=== PATIENT | female | born 1960 | race Caucasian/White ===

== ENCOUNTER → 2016-10-29 | Outpatient (CLI) | payer BC | END | disposition home or self-care (01) | LOC: LABWHC1 13:02 | PROVIDERS: ATTEND Internal Medicine Clinical Cardiac Electrophysiology | DX: I48.0 Paroxysmal atrial fibrillation (principal) | CPT/HCPCS: 36415; 80061; 84443 ==

== ENCOUNTER → 2016-12-24 | Outpatient (CLI) | payer BC ==
--- NOTE | 2016-12-24 23:10 | MR ---
EXAMINATION TYPE: MR brain wo/w con DATE OF EXAM: 12/24/2016 9:58 PM COMPARISON: 01/03/2016 HISTORY: FOLLOW UP FROM PREVIOUS MRI CONTRAST: Standard multiplanar, multisequence MRI departmental protocol utilizing 15 mL intravenous MultiHance gadolinium contrast. FINDINGS: There is mild diffuse cerebral cortical atrophy. There is no mass effect nor midline shift. There is no sign of intracranial hemorrhage. There is no evidence of cerebral edema. Brainstem is in tact. Sella turcica appears normal. Corpus callosum is intact. On the FLAIR images there are a few sc attered foci of increased signal in the periventricular white matter that measure up to 5 mm. Total n umber is less than 5. There is a single larger focus that measures 10 x 6 mm adjacent to the frontal horn of the right lateral ventricle. Contrast images show no pathologic enhancement. IMPRESSION: There are a few scattered white matter high signal foci that are nonspecific and appear stable compar ed to 01/03/2016. This could relate to minimal demyelinating disease or small vessel ischemia.
--- NOTE | 2016-12-24 23:13 | MR ---
EXAMINATION TYPE: MR angio head wo con DATE OF EXAM: 12/24/2016 9:42 PM COMPARISON: NONE HISTORY: FOLLOW UP FROM PREVIOUS MRI TECHNIQUE: Time of flight images focusing on the [place] of [place] were performed without contrast. FINDINGS: There is arterial flow demonstrated in the anterior middle and posterior cerebral arteries. There is arterial flow in the vertebrobasilar artery system. Right vertebral artery is larger than t he left. Basilar artery fills mostly from the right side. There is patency of the left posterior comm unicating artery. Left posterior cerebral artery fills mostly from the posterior communicating artery . There is no evidence of aneurysm or neovascularity. There is no mass effect. There is no evidence o f stenosis. IMPRESSION: Negative MR angiogram of the brain.
== END | disposition home or self-care (01) ==
LOC: RADMRIMAIN 20:59
PROVIDERS: ATTEND Psychiatry & Neurology Neurology
DX: R93.0 Abnormal findings on diagnostic imaging of skull and head, not elsewhere classified (principal); D43.2 Neoplasm of uncertain behavior of brain, unspecified; R05 Cough; R13.10 Dysphagia, unspecified
CPT/HCPCS: 70544; 70553; A9577

== ENCOUNTER → 2017-05-12 | Outpatient (CLI) | payer BC ==
--- NOTE | 2017-05-13 11:34 | MM ---
Reason for exam: screening (asymptomatic). Last mammogram was performed 1 year and 5 months ago. History: Patient is postmenopausal. Benign MG stereo VAD BX RT of the right breast, July 12, 2014. Physical Findings: A clinical breast exam by your physician is recommended on an annual basis and results should be correlated with mammographic findings. MG Screening Mammo w CAD Bilateral CC and MLO view(s) were taken. Prior study comparison: November 28, 2015, bilateral MG screening mammo w CAD. July 03, 2014, right breast MG work up mamm w CAD RT. There are scattered fibroglandular densities. No significant changes when compared with prior studies. ASSESSMENT: Benign, BI-RAD 2 RECOMMENDATION: Routine screening mammogram of both breasts in 1 year.
== END | disposition home or self-care (01) ==
LOC: RADMAMWWP 16:14
PROVIDERS: ATTEND Obstetrics & Gynecology
DX: Z12.31 Encounter for screening mammogram for malignant neoplasm of breast (principal)

== ENCOUNTER → 2018-12-08 | Outpatient (CLI) | payer BC ==
--- NOTE | 2018-12-12 13:09 | MM ---
Reason for exam: screening (asymptomatic). Last mammogram was performed 1 year and 7 months ago. History: Patient is postmenopausal. Benign MG stereo VAD BX RT of the right breast, July 12, 2014. Physical Findings: A clinical breast exam by your physician is recommended on an annual basis and results should be correlated with mammographic findings. MG Screening Mammo w CAD Bilateral CC and MLO view(s) were taken. Prior study comparison: May 12, 2017, bilateral MG screening mammo w CAD. November 28, 2015, bilateral MG screening mammo w CAD. There are scattered fibroglandular densities. No significant changes when compared with prior studies. ASSESSMENT: Negative, BI-RAD 1 RECOMMENDATION: Routine screening mammogram of both breasts in 1 year.
== END | disposition home or self-care (01) ==
LOC: RADMAMWWP 11:55
PROVIDERS: ATTEND Obstetrics & Gynecology
DX: Z12.31 Encounter for screening mammogram for malignant neoplasm of breast (principal)
CPT/HCPCS: 77067

== ENCOUNTER → 2020-08-06 | Outpatient (CLI) | payer BC ==
--- NOTE | 2020-08-09 13:32 | US ---
EXAMINATION TYPE: US kidneys/renal and bladder DATE OF EXAM: 08/06/2020 COMPARISON: NONE CLINICAL HISTORY: R30.0 Dysuria, R39.11. difficulty urinating EXAM MEASUREMENTS: Right Kidney: 10.7 x 3.9 x 4.4 cm Left Kidney: 10.4 x 5.1 x 5.4 cm Post Void Residual Volume: 72.7 mL Right Kidney: no evidence of hydronephrosis Left Kidney: no evidence of hydronephrosis Bladder: appears wnl Bilateral Jets seen: yes Normal Post Void Residual: no There is no evidence for hydronephrosis at this point in time. No nephrolithiasis is seen. No kurt s are identified. Cortical medullary differentiation is maintained. The urinary bladder is anechoic. Bilateral ureteral jets are seen. IMPRESSION: No significant abnormality
== END | disposition home or self-care (01) ==
LOC: RADUSWWP 15:34
PROVIDERS: ATTEND Family Medicine
DX: R30.0 Dysuria (principal); R39.11 Hesitancy of micturition
CPT/HCPCS: 76770

== ENCOUNTER → 2021-07-28 | Outpatient (CLI) | payer BC ==
--- NOTE | 2021-07-29 14:17 | MM ---
Reason for exam: screening (asymptomatic). Last mammogram was performed 2 years and 8 months ago. History: Patient is postmenopausal. Benign MG stereo VAD BX RT of the right breast, July 12, 2014. Physical Findings: A clinical breast exam by your physician is recommended on an annual basis and results should be correlated with mammographic findings. MG Screening Mammo w CAD Bilateral CC and MLO view(s) were taken. Prior study comparison: December 08, 2018, bilateral MG screening mammo w CAD. May 12, 2017, bilateral MG screening mammo w CAD. There are scattered fibroglandular densities. Benign appearing calcifications in the left breast. There is chronic nodularity in the right breast. No significant changes when compared with prior studies. ASSESSMENT: Benign, BI-RAD 2 RECOMMENDATION: Routine screening mammogram of both breasts in 1 year.
== END | disposition home or self-care (01) ==
LOC: RADMAMWWP 11:11
PROVIDERS: ATTEND Family Medicine
DX: Z12.31 Encounter for screening mammogram for malignant neoplasm of breast (principal)
CPT/HCPCS: 77067

== ENCOUNTER → 2021-09-07 | Outpatient (CLI) | payer BC ==
[2021-09-07 19:48] LABS: HCT 41.9 % (37.2-46.3); HGB 13.3 g/dL (12.0-15.0); MCH 31.5 pg (27.0-32.0); MCHC 31.7 g/dL (32.0-37.0); MCV 99.3 fL (80.0-97.0); Mean Platelet Volume 10.9 fL (9.5-12.2); Platelet Count 315 X 10*3/uL (140-440); RBC 4.22 X 10*6/uL (4.10-5.20); RDW 13.1 % (11.5-14.5); WBC 5.78 X 10*3/uL (4.50-10.00)
[2021-09-07 20:04] LABS: African American GFR (CKD) 93.2 (60.0-200.0); Anion Gap 11.2 mmol/L (10.00-18.00); Blood Urea Nitrogen 10.9 mg/dL (9.0-27.0); Carbon Dioxide 24.5 mmol/L (20.0-27.5); Non-African American GFR(CKD) 80.4 (60.0-200.0); Potassium 4.1 mmol/L (3.5-5.5)
== END | disposition home or self-care (01) ==
LOC: LABPAT 14:12
PROVIDERS: ATTEND Internal Medicine
DX: Z01.812 Encounter for preprocedural laboratory examination (principal); U07.1 COVID-19; R07.9 Chest pain, unspecified
CPT/HCPCS: 80051; 82565; 84520; 85027; U0003

== ENCOUNTER 2021-09-10 10:47 | Day surgery (SDC) | payer BC ==
[2021-09-04 15:31] VITALS: BMI 25.0
[~2021-09-10 10:47] MED LIST: ALPRAZolam 0.25 MG TAB PO PRN; ALPRAZolam 0.5 MG TAB PO PRN; ASPIRIN 325 MG TAB PO STA; ATORVASTATIN 80 MG TAB PO STA; NITROGLYCERIN SL TABS 0.4 MG TAB SUBLINGUAL PRN; SODIUM CHLORIDE 0.9% 1,000 ML in EMPTY BAG 1 BAG IV SCH
[2021-09-10] MEDS ORDERED: SODIUM CHLORIDE 0.9% 1,000 ML IV ONE (10:59)
[2021-09-10 11:18] VITALS: RESP 16; TEMP 98.6
[2021-09-10] MEDS ORDERED: LIDOCAINE 1% INJ 10MG/ML (20 ML MDV) ONE (11:37)
[2021-09-10] MEDS ORDERED: fentaNYL (PF) 50 MCG/ML 2 ML AMP ONE (11:38)
[2021-09-10] MEDS ORDERED: VERAPAMIL 2.5 MG/ML 2 ML AMP ONE (11:38)
[2021-09-10] MEDS ORDERED: HEPARIN SODIUM 1,000 UN/ML (10ML VL) ONE (11:38)
[2021-09-10] MEDS ORDERED: fentaNYL (PF) 50 MCG/ML 2 ML AMP IV ONE (12:02)
[2021-09-10] MEDS ORDERED: MIDAZOLAM 2 MG/2 ML VIAL IV ONE (12:02)
[2021-09-10] MEDS ORDERED: LIDOCAINE 1% INJ 10MG/ML (20 ML MDV) SQ ONE (12:03)
[2021-09-10] MEDS ORDERED: VERAPAMIL SYRINGE (5 MG/10 ML) INTRAARTER ONE (12:04)
[2021-09-10] MEDS ORDERED: HEPARIN SODIUM 1,000 UN/ML (10ML VL) IV ONE (12:07)
[2021-09-10] MEDS ORDERED: IOPAMIDOL-370 125ML BTL INJ ONE (12:15)
[2021-09-10 16:37] VITALS: BP 110/69; PULSE 63
--- NOTE | 2021-09-11 15:09 | P.CARDCATH ---
Description of Procedure: PROCEDURES PERFORMED: Left heart catheterization, bilateral coronary angiography DATE OF PROCEDURE: 09/10/2021 INDICATION: Abnormal stress test CONSENT:I have discussed the risks, benefits and alternative therapies for the above-mentioned procedure and for both sedation/analgesia as well as necessary blood product administration, if indicated, as they pertain to this patient. The patient has indicated understanding and acceptance of the risks and procedures discussed. PROCEDURE: After the risks, benefits and alternatives of the above mentioned procedure explained in detail with the patient, informed consent was obtained. Patient was taken to the catheterization lab and prepped and draped in usual fashion. 1% lidocaine was used to anesthetize the right radial artery. A 6- Nepalese sheath was placed in the right radial artery using modified Seldinger technique. Left coronary angiography was performed with a 5-Nepalese JL 3.5 catheter and right coronary angiography was performed with a 5-Nepalese FR5 catheter in various views. A 5-Nepalese FR5 catheter was inserted into the left ventricle and pressure measurements were obtained. The right radial sheath was removed and a TR band was placed with hemostasis achieved. The patient tolerated the procedure well. Patient was transported back to the post catheterization holding area in stable condition. Conscious Sedation: Patient was monitored under the direct supervision of vision of myself for conscious sedation using Versed and fentanyl for a total duration of 13 minutes HEMODYNAMICS: AO: 104/62 LV: 112/1, LVEDP 10mmHg SELECTIVE CORONARY ARTERIOGRAPHY: LEFT MAIN: The left main is a large caliber vessel which bifurcates into the LAD and circumflex. There is no stenosis. LEFT ANTERIOR DESCENDING CORONARY ARTERY: LAD is a large caliber vessel which wraps around to the apex. There is diffuse 30-40% proximal to mid LAD stenosis and otherwise mild luminal irregularities. LEFT CIRCUMFLEX CORONARY ARTERY: Left circumflex is a moderate caliber vessel and has no significant stenosis. RIGHT CORONARY ARTERY: The right coronary artery is a large caliber vessel which gives off the PDA and PLV and is the dominant vessel. There is a mid RCA 30-40% stenosis. FINAL IMPRESSION: 1. CAD as described above including 30-40% LAD and 30-40% RCA stenosis 2. Normal left sided filling pressures. PLAN: 1. Aggressive risk factor modification per most recent ACC/AHA guidelines. 2. Followup in office.
== END 2021-09-10 16:34 | disposition home or self-care (01) ==
LOC: CATHCVL 10:47
PROVIDERS: ATTEND Internal Medicine
DX: I25.10 Atherosclerotic heart disease of native coronary artery without angina pectoris (principal)
CPT/HCPCS: 93458; C1894; J2250; J2001; J3010; J1644; Q9967

== ENCOUNTER → 2022-05-11 | Outpatient (CLI) | payer BC ==
[2022-05-11 22:37] LABS: Alternaria alternata IgE <0.10 kU/L; Aspergillus fumagatus IgE <0.10 kU/L; Birch IgE <0.10 kU/L; Cat Epith & Dander IgE <0.10 kU/L; Cladosporian herbarum IgE <0.10 kU/L; Cockroach IgE <0.10 kU/L; Dermato. farinae IgE <0.10 kU/L; Dog Dander IgE <0.10 kU/L; Maple (Box Elder) IgE <0.10 kU/L; Oak IgE <0.10 kU/L; Ragweed,Common IgE <0.10 kU/L
[2022-05-12 10:07] LABS: Immunoglobulin E 1.49 IU/mL (0.00-114.00)
[2022-05-12 11:50] LABS: Timothy Grass IgE <0.10 kU/L (<0.10); Timothy Grass IgE Class CLASS 0
[2022-05-12 11:51] LABS: Aureo. pullulans IgE <0.10 kU/L (<0.10); Aureo. pullulans IgE Class CLASS 0; Epicoccum purpurascens Class CLASS 0; Epicoccum purpurascens IgE <0.10 kU/L (<0.10); Johnson Grass IgE Class CLASS 0
[2022-05-12 11:52] LABS: Candida albicans IgE Class CLASS 0; Cottonwood IgE <0.10 kU/L (<0.10); Mucor racemosus IgE <0.10 kU/L (<0.10); Mucor racemosus IgE Class CLASS 0; Rhizopus nigricans IgE <0.10 kU/L (<0.10); Rhizopus nigricans IgE Class CLASS 0; S.rostrata/Helminth Class CLASS 0; S.rostrata/Helminth IgE <0.10 kU/L (<0.10); Walnut Tree IgE <0.10 kU/L (<0.10); Walnut Tree IgE Class CLASS 0
[2022-05-12 11:53] LABS: Com. Pigweed IgE <0.10 kU/L (<0.10); Com. Pigweed IgE Class CLASS 0; English Plantain IgE Class CLASS 0; Lamb's Quarter IgE <0.10 kU/L (<0.10); Lamb's Quarter IgE Class CLASS 0; Sycamore(Mpl.Lf) IgE <0.10 kU/L (<0.10); Sycamore(Mpl.Lf) IgE Class CLASS 0; White Ash IgE Class CLASS 0
== END | disposition home or self-care (01) ==
LOC: LABWHC1 14:03
PROVIDERS: ATTEND Otolaryngology
DX: J30.89 Other allergic rhinitis (principal)
CPT/HCPCS: 36415; 82785; 86001; 86003

== ENCOUNTER → 2022-07-14 | Outpatient (CLI) | payer BC ==
--- NOTE | 2022-07-14 07:15 | MR ---
EXAMINATION TYPE: MR lumbar spine wo con DATE OF EXAM: 07/14/2022 COMPARISON: Calcified lumbar spine x-ray February 25, 2022 HISTORY: Low back pain TECHNIQUE: Multiplanar, multisequence imaging of the lumbar spine is performed without IV contrast. FINDINGS: Persistent dextroconvex scoliosis centered midlumbar spine. Persistent severe grade 1 anter olisthesis L5 on S1 measured 9 mm along the posterior vertebral body margin. Multilevel disc desiccat ion is present. Multilevel [id number] disc space narrowing redemonstrated with mild to moderate anterior spurring and heterogeneous Modic type II endplate changes anterior T12-L1 level. The conus medullaris is normal in position and signal ending superior L1 level. A few tiny Tarlov cysts noted i n the upper sacrum sagittal image 7. The bone marrow signal intensity is within normal limits. Axial images at T12-L1 levels show mild broad disc bulge with right paracentral disc protrusion compo nent mildly effacing the anterior thecal sac. Axial images at L1-L2 level show mild broad disc bulge mildly effacing anterior thecal sac and mild f acet arthropathy bilaterally. Axial images at L2-L3 level appear within normal limits. Axial images at L3-L4 level show mild broad disc bulge mildly effacing the anterior thecal sac. There is mild/moderate facet arthropathy and ligamentum flavum hypertrophy effacing the posterolateral the josephine sac. Patent bilateral neural foramina. Axial images at L4-L5 show mild broad disc bulge with left foraminal disc protrusion component causin g asymmetric mild left-sided inferior neural foraminal narrowing. There is mild facet arthropathy ty aterally. Right-sided neural foramen is patent. Axial images at L5-S1 level shows spondylolisthesis and mild to moderate facet arthropathy. Spinal ca nal is preserved. There is moderate severe bilateral inferior neural foraminal narrowing with encroac hment on the right L5 nerve seen sagittal image 13 and axial image 5. Encroachment along inferior mar gin left L5 nerve seen sagittal image 4. Paraspinal muscle bulk is preserved. IMPRESSION: Multilevel degenerative change in lumbar spine as detailed above. Most prominent findings related to spondylolisthesis noted L5-S1 level.
== END | disposition home or self-care (01) ==
LOC: RADMRIMAIN 05:58
PROVIDERS: ATTEND Family Medicine
DX: M47.817 Spondylosis without myelopathy or radiculopathy, lumbosacral region (principal); M43.17 Spondylolisthesis, lumbosacral region; M99.74 Connective tissue and disc stenosis of intervertebral foramina of sacral region; M51.26 Other intervertebral disc displacement, lumbar region
CPT/HCPCS: 72148

== ENCOUNTER → 2022-07-30 | Outpatient (CLI) | payer BC ==
[2022-07-30 19:07] LABS: ALT 23 U/L (8-44); AST 22 U/L (13-35); African American GFR (CKD) 107.6 (60.0-200.0); Albumin 4.7 g/dL (3.8-4.9); Albumin/Globulin Ratio 2.14 (1.60-3.17); Alkaline Phosphatase 50 U/L (41-126); BUN/Creat Ratio 15.43 Ratio (12.00-20.00); Blood Urea Nitrogen 10.8 mg/dL (9.0-27.0); Carbon Dioxide 24.8 mmol/L (20.0-27.5); Chloride 102 mmol/L (96-109); Chol/HDL Ratio 2.46 Ratio; Globulin 2.2 g/dL (1.6-3.3); Glucose 98 mg/dL (70-110); LDL Cholesterol,Calculated 60.6 mg/dL (0.0-131.0); Non-African American GFR(CKD) 92.9 (60.0-200.0); Potassium 4.5 mmol/L (3.5-5.5); Sodium 138 mmol/L (135-145); Total Protein 6.9 g/dL (6.2-8.2)
== END | disposition home or self-care (01) ==
LOC: LABWHC1 12:23
PROVIDERS: ATTEND Internal Medicine Clinical Cardiac Electrophysiology
DX: I25.10 Atherosclerotic heart disease of native coronary artery without angina pectoris (principal); E78.5 Hyperlipidemia, unspecified
CPT/HCPCS: 36415; 80053; 80061; 83721

== ENCOUNTER → 2022-08-04 | Outpatient (CLI) | payer BC ==
--- NOTE | 2022-08-05 19:18 | MM ---
Reason for Exam: Screening (asymptomatic). Last screening mammogram was performed 12 month(s) ago. Patient History: Menarche at age 11. First Full-Term at age 18. Postmenopausal. 07/12/2014, Benign Core Biopsy on the right side. Risk Values: Tiffany 5 year model risk: 1.4%. NCI Lifetime model risk: 6.5%. Prior Study Comparison: 05/12/2017 Bilateral Screening Mammogram, [facility]. 12/08/2018 Bilateral Screening Mammogram, [facility]. 07/28/2021 Bilateral Screening Mammogram, [facility]. Tissue Density: There are scattered fibroglandular densities. Findings: Analyzed By CAD. There is no suspicious group of microcalcifications or new suspicious mass in either breast. Overall Assessment: Negative, BI-RAD 1 Management: Screening Mammogram of both breasts in 1 year. 1. Patient should continue monthly self breast exams. 2. A clinical breast exam by your physician is recommended on an annual basis. 3. This exam should not preclude additional follow-up of suspicious palpable abnormalities. Electronically signed and approved by: Ana Cherry M.D. Radiologist
== END | disposition home or self-care (01) ==
LOC: RADMAMWWP 14:05
PROVIDERS: ATTEND Family Medicine
DX: Z12.31 Encounter for screening mammogram for malignant neoplasm of breast (principal); Z78.0 Asymptomatic menopausal state
CPT/HCPCS: 77067

== ENCOUNTER → 2023-08-18 | Outpatient (CLI) | payer BC ==
[2023-08-18 15:44] LABS: HCT 43.3 % (37.2-46.3); HGB 13.7 g/dL (12.0-15.0); MCH 31.1 pg (27.0-32.0); MCHC 31.6 g/dL (32.0-37.0); MCV 98.2 FL (80.0-97.0); Mean Platelet Volume 10.8 FL (9.5-12.2); NRBC Per 100 WBC 0 X 10*3/uL (0.00-0.01); Platelet Count 291 X 10*3/uL (140-440); RBC 4.41 X 10*6/uL (4.10-5.20); RDW 12.7 % (11.5-14.5); WBC 5.88 X 10*3/uL (4.50-10.00)
[2023-08-18 16:12] LABS: Blood Urea Nitrogen 9.5 mg/dL (9.0-27.0); Carbon Dioxide 26.9 mmol/L (21.6-31.8); Chloride 101 mmol/L (96-109); Potassium 4.6 mmol/L (3.5-5.5); Sodium 140 mmol/L (135-145)
== END | disposition home or self-care (01) ==
LOC: LABPAT 10:53
PROVIDERS: ATTEND Internal Medicine Clinical Cardiac Electrophysiology
DX: Z01.812 Encounter for preprocedural laboratory examination (principal); I48.0 Paroxysmal atrial fibrillation
CPT/HCPCS: 36415; 80051; 82565; 84520; 85027

== ENCOUNTER 2023-09-01 07:49 | Day surgery (SDC) | payer BC ==
[~2023-09-01 07:49] MED LIST changes: -ALPRAZolam 0.25 MG TAB PO PRN; -ALPRAZolam 0.5 MG TAB PO PRN; -ASPIRIN 325 MG TAB PO STA; -ATORVASTATIN 80 MG TAB PO STA; +LIDOCAINE 1% (10MG/ML) FOR IV START INTRADERMA PRN; -NITROGLYCERIN SL TABS 0.4 MG TAB SUBLINGUAL PRN; -SODIUM CHLORIDE 0.9% 1,000 ML in EMPTY BAG 1 BAG IV SCH
[2023-09-01] MEDS: SODIUM CHLORIDE 0.9% 1,000 ML IV SCH ×2 (08:22→21:44)
[2023-09-01] MEDS ORDERED: fentaNYL (PF) 50 MCG/ML 2 ML AMP ONE (09:35)
[2023-09-01] MEDS ORDERED: ePHEDrine 50 MG/ML 1 ML VIAL ONE (09:35)
[2023-09-01] MEDS ORDERED: MIDAZOLAM 2 MG/2 ML VIAL ONE (09:35)
[2023-09-01] MEDS ORDERED: PHENYLEPHRINE-0.9% NACL SYG 1,000 MCG/10 ML SYRINGE ONE (09:35)
[2023-09-01] MEDS ORDERED: PROPOFOL 10 MG/ML 20 ML VIAL IV ONE (09:35)
[2023-09-01] MEDS ORDERED: LIDOCAINE 1% INJ 10MG/ML (20 ML MDV) ONE ×2 (09:35→10:11)
[2023-09-01] MEDS ORDERED: SUCCINYLCHOLINE CHLORIDE 200 MG/10 ML VIAL IV ONE (09:35)
[2023-09-01] MEDS ORDERED: WATER FOR INJECTION, STERILE 10 ML VIAL IV ONE (09:35)
[2023-09-01] MEDS ORDERED: HEPARIN SODIUM,PORCINE 10,000 UNIT/ML 1 ML VIAL ONE (09:35)
[2023-09-01] MEDS ORDERED: HEPARIN SOD,PORK IN 0.45% NACL 25,000 UNIT in 0.45% NACL 1 250ML.BAG IV ONE ×2 (10:05)
[2023-09-01] MEDS ORDERED: LIDOCAINE 1% INJ 10MG/ML (20 ML MDV) SQ ONE (10:36)
[2023-09-01] MEDS ORDERED: IOPAMIDOL-370 100ML BTL INJ ONE (12:25)
[2023-09-01] MEDS ORDERED: ACETAMINOPHEN TAB 325 MG TAB PO PRN (13:51)
[2023-09-01] MEDS ORDERED: ACETAMINOPHEN IV (For NPO) 1,000 MG in EMPTY BAG 1 BAG IVPB ONE (16:00)
[2023-09-01] MEDS: LACTATED RINGERS 1,000 ML IV SCH ×2 (17:04→21:43)
--- NOTE | 2023-09-01 18:32 | P.EPPROC ---
- EP Procedure Note Electrophysiology Procedure Note: PROCEDURE A. 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 fib ablation/pulmonary vein isolation of all veins using cryo- ablation Complete entrance block in all 4 veins confirmed No evidence for phrenic nerve injury Esophageal deflection YES PROCEDURE DETAILS Written informed consent prior to procedure. Patient brought to the EP lab. General anesthesia given. Heparin administered. A city maintained above 300 seconds Both groins prepped and draped per protocol and venous sheaths placed. Esophagus intubated, circa catheter for temperature monitoring an endoscope for possible esophageal deflection. Phrenic nerve monitoring performed. Esophageal temperature monitoring performed. Esophageal deflection performed if circa catheter overlapping with the balloon or circa temperature less than 27.5C Intracardiac echocardiography performed. Pericardium evaluated. Left atrial appendage evaluated. Left atrium evaluated along with pulmonary veins Transseptal catheterization performed under fluoroscopic guidance and intracardiac echo guidance Cryoablation sheath exchanged, balloon catheter along with achieve catheter placed in the left atrium. Pulmonary veins isolated in the following sequence: Left superior pulmonary vein followed by left inferior pulmonary vein, followed by right inferior pulmonary vein and lastly right superior pulmonary vein. Phrenic nerve stimulation along with capture thresholds within the SVC and right superior pulmonary vein to identify the phrenic nerve proximity to the cryo- balloon. Pulmonary veins isolated and confirmed with entrance and exit block. Phrenic nerve integrity confirmed at the end of the procedure Diagnostic catheters for the high right atrium, His bundle, coronary sinus placed. LA and RA pressures recorded RA pressure: 13/9 LA pressure: 08/21/10 Diagnostic EP study with coronary sinus pacing and recording Baseline measurements: Sinus cycle length 626 ms, AK interval 130 ms, QRS 97 ms and QT 346 ms AH interval 54 and HV interval 37 ms Parahisian pacing revealed zarina response VA Wenckebach block 300 ms Atrial pacing performed from the high right atrium and coronary sinus to assess Venous sheaths were removed and hemostasis assured with a closure device. Patie nt extubated and transferred to recovery Increase procedural time Complex right superior pulmonary vein anatomy. Despite adequate occlusion isolated potentials persisted Extra effort to occlude a different tributaries are of the right superior vein to achieve complete isolation and elimination of all PCPs The left-sided veins had a common os with immediate branching. The also had a anteroposterior orientation relative to 1 other It took extra effort to find the left superior and left inferior pulmonary veins individually isolated them at an anterolateral level Multiple shorter ablations were delivered to achieve complete antral level isolation PROCEDURES PERFORMED Diagnostic EP study CS pacing and recording Left and right transseptal catheterization Catheter the mapping of the tachycardia Intracardiac echocardiography Pulmonary vein isolation with transseptal and comprehensive EPS, [id number] Extended procedure duration
[2023-09-01 19:49] VITALS: RESP 16
[2023-09-01] MEDS: APIXABAN 5 MG TAB PO SCH (20:13)
[2023-09-01] MEDS ORDERED: ATORVASTATIN 40 MG TAB PO SCH (21:00)
[2023-09-02 04:51] VITALS: TEMP 98.1
[2023-09-02] MEDS ORDERED: PANTOPRAZOLE 40 MG TABLET PO SCH (07:30)
[2023-09-02] MEDS: APIXABAN 5 MG TAB PO SCH (08:39)
[2023-09-02] MEDS ORDERED: COLCHICINE 0.6 MG EACH PO SCH (09:00)
[2023-09-02] MEDS ORDERED: atenoloL 25 MG TAB PO SCH (09:00)
[2023-09-02 09:18] VITALS: BP 131/78; PULSE 98
== END 2023-09-02 10:26 | disposition home or self-care (01) ==
LOC: CATHEP 07:49 → 6NMEDSUR 12:25 → CATHEP 09-02 10:26
PROVIDERS: ATTEND Internal Medicine Clinical Cardiac Electrophysiology
DX: I48.0 Paroxysmal atrial fibrillation (principal); Z82.49 Family history of ischemic heart disease and other diseases of the circulatory system; Z79.01 Long term (current) use of anticoagulants; Z79.899 Other long term (current) drug therapy
CPT/HCPCS: 93656; 86900; 86901; 86850; C1894 ×2; C1769 ×3; C1760; C1730 ×2; C1759; C1893; C1733; C1766; J2001; J0131; Q9967; J1644

== ENCOUNTER → 2024-04-18 | Outpatient (CLI) | payer BC ==
--- NOTE | 2024-04-19 10:35 | MM ---
Reason for Exam: Screening (asymptomatic). Last mammogram was performed 1 year(s) and 9 month(s) ago. Patient History: Menarche at age 11. First Full-Term at age 18. Postmenopausal. 07/12/2014, Benign Core Biopsy on the right side. Risk Values: Tiffany 5 year model risk: 1.5%. NCI Lifetime model risk: 6.1%. Prior Study Comparison: 12/08/2018 Bilateral Screening Mammogram, [facility]. 07/28/2021 Bilateral Screening Mammogram, [facility]. 08/04/2022 Bilateral MG screening mammo w CAD, [facility]. Tissue Density: The breasts are heterogeneously dense, which may obscure small masses. Findings: Analyzed By CAD. There is no suspicious group of microcalcifications or new suspicious mass in either breast. Overall Assessment: Benign, BI-RAD 2 Management: Screening Mammogram of both breasts in 1 year. . Patient should continue monthly self-breast exams. A clinical breast exam by your physician is recommended on an annual basis. This exam should not preclude additional follow-up of suspicious palpable abnormalities. Note on Tiffany scores and lifetime risk: 1. A Tiffany score greater than 3% is considered moderate risk. If this is the case, consider specialist referral to assess eligibility for a risk reducing agent. 2. If overall lifetime risk for the development of breast cancer is 20% or higher, the patient may qualify for future screening with alternating mammogram and breast MRI. Electronically signed and approved by: Bernabe Rudolph M.D. Radiologis
== END | disposition home or self-care (01) ==
LOC: RADMAMWWP 11:11
PROVIDERS: ATTEND Obstetrics & Gynecology
DX: Z12.31 Encounter for screening mammogram for malignant neoplasm of breast
CPT/HCPCS: 77063; 77067

== ENCOUNTER 2024-10-03 19:26 | Observation (INO) | payer BC ==
[2024-10-03 21:26] LABS: Basophils % (A) 0 %; Eosinophils # (A) 0.3 k/uL (0-0.7); Eosinophils % (A) 5 %; HCT 42.7 % (34.0-46.0); HGB 13.9 gm/dL (11.4-16.0); Lymphocytes # (A) 2.2 k/uL (1.0-4.8); Lymphocytes % (A) 38 %; MCH 31.1 pg (25.0-35.0); MCHC 32.5 g/dL (31.0-37.0); MCV 95.5 fL (80.0-100.0); Mean Platelet Volume 8.2; Monocytes # (A) 0.4 k/uL (0-1.0); Monocytes % (A) 7 %; Neutrophils # (A) 2.7 k/uL (1.3-7.7); Neutrophils % (A) 48 %; Platelet Count 269 k/uL (150-450); RBC 4.48 m/uL (3.80-5.40); RDW 12.9 % (11.5-15.5); WBC 5.7 k/uL (3.8-10.6)
[2024-10-03 21:33] LABS: ALT 26 U/L (4-34); AST 27 U/L (14-36); African American GFR (CKD) 83 (>60 ml/min/1.73 sqM); Albumin 4.6 g/dL (3.5-5.0); Alkaline Phosphatase 45 U/L (38-126); Anion Gap 9 mmol/L; Blood Urea Nitrogen 17 mg/dL (7-17); Calcium 9.6 mg/dL (8.4-10.2); Carbon Dioxide 28 mmol/L (22-30); Chloride 103 mmol/L (98-107); Glucose 112 mg/dL (74-99); Non-African American GFR(CKD) 72 (>60 ml/min/1.73 sqM); Potassium 4.4 mmol/L (3.5-5.1); Sodium 140 mmol/L (137-145); Total Bilirubin 0.6 mg/dL (0.2-1.3); Total Protein 7.4 g/dL (6.3-8.2)
[2024-10-03 21:52] LABS: C Reactive Protein <0.5 mg/dL (<1.0)
--- NOTE | 2024-10-03 21:59 | CT ---
EXAMINATION TYPE: CT brain wo con DATE OF EXAM: 10/03/2024 9:40 PM COMPARISON: MRI 12/24/2016 CLINICAL INDICATION: Female, 64 years old with history of left sided headache, Pt c/o left sided head ache x 1 day. no blurred vision or dizziness, increased pain to bend over. no trauma. TECHNIQUE: CT of the brain is performed utilizing 3 mm thick sections through the posterior fossa and 3 mm thick sections through the remaining calvarium. Study is performed within 24 hours of arrival to the hospital. Contrast used: mL of , (none if empty) CT DLP: 1161.4 mGycm, Automated exposure control for dose reduction was used. FINDINGS: No abnormal hyperdensity is present to suggest an acute intracranial hemorrhage. No mass lesion is evident. There is a 0.9 cm hypodensity within the right basal ganglion. A lacunar infarct of indeterminate age may be present. Correlate with symptoms. Report was called emergency room physician by Dr. Antwon maldonado t the time of interpretation. Ventricles and sulci are appropriate for the patient age. Paranasal sinuses and mastoid air cells within the [id number] are clear. IMPRESSION: 1. Ill-defined 0.9 cm right basal ganglia hypodensity may be a lacunar infarct of indeterminate age. Acute infarct is within the differential. Correlate with symptoms. Follow-up with MRI. [facility], , 10/03/2024 9:57 PM
[2024-10-03 22:10] LABS: Influenza A Not Detected (Not Detectd); Influenza B Not Detected (Not Detectd); RSV Not Detected (Not Detectd)
[2024-10-03] MEDS ORDERED: NALOXONE 0.4 MG/ML 1 ML VIAL IV PRN (23:07)
--- NOTE | 2024-10-03 23:07 | ED ---
Headache HPI - General Chief Complaint: Headache Stated Complaint: L side headache Time Seen by Provider: 10/03/24 19:30 Mode of arrival: ambulatory Limitations: no limitations - History of Present Illness Initial Comments: 64-year-old female with past medical history of A-fib on a baby aspirin who presents to the emergency department reporting headache. States that she had a left-sided headache 3 weeks ago which lasted a day and then resolved. Reports that yesterday the pain started again. Localized over the left temporal region is very tender to touch. Started at 8:30 PM last night. States that the pain is worse with coughing and bending forward. She denies any visual disturbance. No vertiginous symptoms. Denies any head injuries. Patient does not take any blood thinners. Patient was seen by her primary care physician today. Laboratory studies were conducted. Patient was going to be scheduled for an MRI. The pain increased this evening which prompted the patient to come to the emergency department. She did take some Tylenol before coming in. She denies any numbness, tingling or weakness in her extremities. No facial droop. No confusion or speech difficulties. No other alleviating, precipitating or modifying factors - Related Data Home Medications Medication Instructions Recorded Confirmed atenoloL [Tenormin] 25 mg PO DAILY 09/04/21 10/04/24 Rosuvastatin [Crestor] 20 mg PO HS 09/01/23 10/04/24 Aspirin EC [Ecotrin Low Dose] 81 mg PO DAILY 10/04/24 10/04/24 Allergies Allergy/AdvReac Type Severity Reaction Status Date / Time clarithromycin [From Biaxin] Allergy Vomiting Verified 10/04/24 07:49 Milk Containing Products Allergy Unknown Verified 10/04/24 07:49 (Dairy) [Dairy] Review of Systems ROS Statement: Those systems with pertinent positive or pertinent negative responses have been documented in the HPI. ROS Other: All systems not noted in ROS Statement are negative. Past Medical History Past Medical History: Atrial Fibrillation Additional Past Medical History / Comment(s): perisistent cough lasting for years History of Any Multi-Drug Resistant Organisms: None Reported Past Surgical History: Ablation, Breast Surgery, Heart Catheterization Past Anesthesia/Blood Transfusion Reactions: No Reported Reaction Past Psychological History: Anxiety Smoking Status: Never smoker Past Alcohol Use History: Occasional Past Drug Use History: None Reported General Exam Limitations: no limitations General appearance: alert, in no apparent distress Head exam: Present: atraumatic, normocephalic, other (tenderness to palpation to the left uatsdin) Eye exam: Present: normal appearance, PERRL, EOMI. Absent: scleral icterus, conjunctival injection, periorbital swelling ENT exam: Present: normal exam, mucous membranes moist Neck exam: Present: normal inspection. Absent: tenderness, meningismus, lymphadenopathy Respiratory exam: Present: normal lung sounds bilaterally. Absent: respiratory distress, wheezes, rales, rhonchi, stridor Cardiovascular Exam: Present: regular rate, normal rhythm, normal heart sounds. Absent: systolic murmur, diastolic murmur, rubs, gallop, clicks GI/Abdominal exam: Present: soft, normal bowel sounds. Absent: distended, tenderness, guarding, rebound, rigid Extremities exam: Present: normal inspection, full ROM, normal capillary refill. Absent: tenderness, pedal edema, joint swelling, calf tenderness Back exam: Present: normal inspection Neurological exam: Present: alert, oriented X3, CN II-XII intact Psychiatric exam: Present: normal affect, normal mood Skin exam: Present: warm, dry, intact, normal color. Absent: rash Course Vital Signs 10/03/24 10/03/24 10/04/24 19:28 22:58 04:08 Temperature 97.9 F Pulse Rate 91 95 65 Respiratory 18 17 18 Rate Blood Pressure 151/95 115/93 129/85 O2 Sat by Pulse 97 95 99 Oximetry 10/04/24 10/04/24 10/04/24 08:51 12:10 18:27 Temperature Pulse Rate 108 H 74 81 Respiratory 16 18 18 Rate Blood Pressure 123/95 135/94 129/98 O2 Sat by Pulse 98 94 L 98 Oximetry 10/04/24 21:00 Temperature 97.9 F Pulse Rate 81 Respiratory 18 Rate Blood Pressure 132/97 O2 Sat by Pulse 96 Oximetry Medical Decision Making - Medical Decision Making Was pt. sent in by a medical professional or institution (, PA, ACCESS DIRECTOR, urgent care, hospital, or [facility]...) When possible be specific @ -No Did you speak to anyone other than the patient for history (EMS, parent, family, police, friend...)? What history was obtained from this source @ -No Did you review nursing and triage notes (agree or disagree)? Why? @ -I reviewed and agree with nursing and triage notes Were old charts reviewed (outside hosp., previous admission, EMS record, old EKG, old radiological studies, urgent care reports/EKG's, [facility] records)? Report findings @ -No old charts were reviewed Differential Diagnosis (chest pain, altered mental status, abdominal pain women, abdominal pain men, vaginal bleeding, weakness, fever, dyspnea, syncope, headache, dizziness, GI bleed, back pain, seizure, CVA, palpatations, mental hea lth, musculoskeletal)? @ -Differential Headache: Migraine, tension, cluster, carbon monoxide, central venous thrombosis, pension karma temporal arteritis, acute closure glaucoma, intercranial hemorrhage, mastoiditis, sinusitis, head injury, this is not meant to be an all-inclusive list. EKG interpreted by me (3pts min.). @ -Not done X-rays interpreted by me (1pt min.). @ -None done CT interpreted by me (1pt min.). @ -Yes and demonstrates right basal ganglia hypodensity U/S interpreted by me (1pt. min.). @ -None done What testing was considered but not performed or refused? (CT, X-rays, U/S, labs)? Why? @ -None What meds were considered but not given or refused? Why? @ -None Did you discuss the management of the patient with other professionals (professionals i.e. , PA, ACCESS DIRECTOR, lab, RT, psych nurse, hospice social worker, dispensing and measuring optician, teacher, probation and parole officer, trimming caser)? Give summary @ -I spoke with Dr. Masters for the admission. Was smoking cessation discussed for >3mins.? @ -No Was critical care preformed (if so, how long)? @ -No Were there social determinants of health that impacted care today? How? (Homelessness, low income, unemployed, alcoholism, drug addiction, transportatio n, low edu. Level, literacy, decrease access to med. care, nursing home, rehab)? @ -No Was there de-escalation of care discussed even if they declined (Discuss DNR or withdrawal of care, Hospice)? DNR status @ -No What co-morbidities impacted this encounter? (DM, HTN, Smoking, COPD, CAD, Cancer, CVA, ARF, Chemo, Hep., AIDS, mental health diagnosis, sleep apnea, morbid obesity)? @ -None Was patient admitted / discharged? Hospital course, mention meds given and route, prescriptions, significant lab abnormalities, going to OR and other pertinent info. @ -Upon arrival patient seen and evaluated in bed 11. Thorough history and physical exam was performed. ESR is ordered for possible temporal arteritis however results will not come back tonight. Additional laboratory studies are conducted. CT is performed I do get a call from the radiologist describing a right basal ganglia hypodensity which may be an acute hemorrhage. I did discuss this with patient. Recommended admission for MRI. Patient was agreeable to this. I will consult neurology for the abnormal brain CT and vascular for possible temporal arteritis. Spoke with Dr. Shelley for the admission Undiagnosed new problem with uncertain prognosis? @ -No Drug Therapy requiring intensive monitoring for toxicity (Heparin, Nitro, Insu santosh, Cardizem)? @ -No Were any procedures done? @ -No Diagnosis/symptom? @ -Left temporal headache, possible temporal arteritis, abnormal CT brain with right basal ganglia hypodensity Acute, or Chronic, or Acute on Chronic? @ -Acute Uncomplicated (without systemic symptoms) or Complicated (systemic symptoms)? @ -Complicated Side effects of treatment? @ -No Exacerbation, Progression, or Severe Exacerbation? @ -No Poses a threat to life or bodily function? How? (Chest pain, [place], ME, pneumonia, PE, COPD, DKA, ARF, appy, cholecystitis, CVA, Diverticulitis, Homicidal, Suicidal, threat to staff... and all critical care pts) @ -Yes his CT shows possible basal ganglia hypodensity - Lab Data Result diagrams: 10/04/24 07:12 10/04/24 07:12 Lab Results 10/03/24 10/03/24 10/03/24 Range/Units 20:57 20:57 21:18 WBC 5.7 (3.8-10.6) k/uL RBC 4.48 (3.80-5.40) m/uL Hgb 13.9 (11.4-16.0) gm/dL Hct 42.7 (34.0-46.0) % MCV 95.5 (80.0-100.0) fL MCH 31.1 (25.0-35.0) pg MCHC 32.5 (31.0-37.0) g/dL RDW 12.9 (11.5-15.5) % Plt Count 269 (150-450) k/uL MPV 8.2 Neutrophils % 48 % Lymphocytes % 38 % Monocytes % 7 % Eosinophils % 5 % Basophils % 0 % Neutrophils # 2.7 (1.3-7.7) k/uL Lymphocytes # 2.2 (1.0-4.8) k/uL Monocytes # 0.4 (0-1.0) k/uL Eosinophils # 0.3 (0-0.7) k/uL Basophils # 0.0 (0-0.2) k/uL ESR 11 (0-30) mm/Hr Sodium 140 (137-145) mmol/L Potassium 4.4 (3.5-5.1) mmol/L Chloride 103 (98-107) mmol/L Carbon Dioxide 28 (22-30) mmol/L Anion Gap 9 mmol/L BUN 17 (7-17) mg/dL Creatinine 0.86 (0.52-1.04) mg/dL Est GFR (CKD-EPI)AfAm 83 (>60 ml/min/1.73 sqM) Est GFR (CKD-EPI)NonAf 72 (>60 ml/min/1.73 sqM) Glucose 112 H (74-99) mg/dL Calcium 9.6 (8.4-10.2) mg/dL Total Bilirubin 0.6 (0.2-1.3) mg/dL AST 27 (14-36) U/L ALT 26 (4-34) U/L Alkaline Phosphatase 45 (38-126) U/L C-Reactive Protein <0.5 (<1.0) mg/dL Total Protein 7.4 (6.3-8.2) g/dL Albumin 4.6 (3.5-5.0) g/dL Influenza Type A (PCR) Not Detected (Not Detectd) Influenza Type B (PCR) Not Detected (Not Detectd) RSV (PCR) Not Detected (Not Detectd) SARS-CoV-2 (PCR) Not Detected (Not Detectd) Disposition Clinical Impression: Headache, Lacunar infarct, acute Disposition: ADMITTED IP TO THIS HOSP Condition: Stable Is patient prescribed a controlled substance at d/c from ED?: No Time of Disposition: 23:07 Decision to Admit Reason: Admit from EC Decision Date: 10/03/24 Decision Time: 23:07
[2024-10-03] MEDS: ASPIRIN 325 MG TAB PO STA (23:40)
--- NOTE | 2024-10-04 03:06 | P.HPIM ---
History of Present Illness H&P Date: 10/03/24 Patient is a 64-year-old female with CAD, atrial fibrillation (not on anticoagulation), anxiety here for headache. Patient reported that she began to have a left-sided headache localized over the left temporal region that is tender to touch, sharp, constant with a 7-8/10 intensity that began around 8:30 PM on 10/02 at rest. She reported that she also had a headache episode that occurred 3 weeks ago which lasted a day and then resolved. There is associated worsening of the pain with the coughing, exertion and bending forward. She tried to take Tylenol for pain relief but it did not work. She sought care with her primary care today for the headache and she was to be scheduled for an MRI. Headache increased in severity which led her to seek care. She denied facial symmetry, facial pain, jaw pain, headaches, changes in speech, changes in vision, focal weakness, numbness, tremors, lightheadedness, chest pain, palpitations, shortness of breath, calf pain, abdominal pain, recent illness, or recent trauma. She had an ablation for AFib in 2023 and has not been on anticoagulation since. Social history: Tobacco: Never smoker Alcohol: Occasional alcohol use Recreational drugs: No history of illicit or recreational drugs Travel: No recent travel On admission, brain CT showed ill-defined 0.9 cm right basal ganglia hypodensity may be a lacunar infarct of indeterminate age. Advised to follow-up with MRI. Labs on admission showed WBC 5.7, hemoglobin 13.9, MCV 95.5, platelet count 269, 000, sodium 140, potassium 4.4, chloride 103, bicarb 28, BUN 17, creatinine 0.96, glucose 112, calcium 9.6, total bilirubin 0.6, AST 27, ALT 26, alk phos 45, CRP less than 0.5, albumin 4.6. Cepheid 4 negative. Vitals on admission showed 97.5 Fahrenheit temperature, pulse rate 91, respiratory rate 18, blood pressure 151/95, O2 saturation 97% on room air ED documentation reviewed. High-dose aspirin given in the ED. Review of Systems Review of systems: Pertinent positives and negatives as discussed in HPI, a complete review of systems was performed and all other systems are negative. Past Medical History Past Medical History: Atrial Fibrillation Additional Past Medical History / Comment(s): perisistent cough lasting for years History of Any Multi-Drug Resistant Organisms: None Reported Past Surgical History: Ablation, Breast Surgery, Heart Catheterization Past Anesthesia/Blood Transfusion Reactions: No Reported Reaction Past Psychological History: Anxiety Smoking Status: Never smoker Past Alcohol Use History: Occasional Past Drug Use History: None Reported Medications and Allergies Home Medications Medication Instructions Recorded Confirmed Type atenoloL [Tenormin] 25 mg PO DAILY 09/04/21 09/01/23 History Apixaban [Eliquis] 5 mg PO BID 09/01/23 09/01/23 History Omeprazole 20 mg PO DAILY 09/01/23 09/01/23 History Rosuvastatin [Crestor] 20 mg PO HS 09/01/23 09/01/23 History Colchicine [Colcrys] 0.6 mg PO BID #14 tablet 09/02/23 Rx Allergies Allergy/AdvReac Type Severity Reaction Status Date / Time clarithromycin [From Biaxin] Allergy Vomiting Verified 10/03/24 19:32 Milk Containing Products Allergy Unknown Verified 10/03/24 19:32 (Dairy) [Dairy] Physical Exam Vitals: Vital Signs Temp Pulse Resp BP Pulse Ox 10/03/24 22:58 95 17 115/93 95 10/03/24 19:28 97.9 F 91 18 151/95 97 Intake and Output 10/03/24 10/03/24 10/04/24 14:59 22:59 06:59 Other: Weight 72.575 kg Physical examination: Vital signs reviewed General: non toxic, no distress, appears at stated age Derm: no unusual rashes/lesions, warm Head: atraumatic, normocephalic, symmetric, no beading or swelling on palpation of the head or the temporal artery, no scalp tenderness, no facial tenderness on palpation Eyes: EOMI, anicteric sclera, pupils equal round reactive to light ENT: Nose and ears atraumatic Neck: No cervical lymphadenopathy, trachea midline, supple Mouth: no lip lesion, mucus membranes moist Cardiovascular: S1S2 reg, no murmur Lungs: CTA bilateral, no rhonchi, no rales, no accessory muscle use Abdominal: soft, nondistended, nontender to palpation, no guarding Ext: muscle strength 5 out of 5 in all 4 extremities grossly, no gross muscle atrophy, no contractures, positive dorsalis pedis pulse bilateral, no edema Neuro: CN II-XI grossly intact, no gross focal neuro deficits Psych: Alert and oriented x 3, appropriate affect and mood Results CBC & Chem 7: 10/03/24 20:57 10/03/24 20:57 Labs: Abnormal Lab Results - Last 24 Hours (Table) 10/03/24 Range/Units 20:57 Glucose 112 H (74-99) mg/dL Assessment and Plan Assessment: Assessment/Plan: 64-year-old female with new onset acute headache with no significant neurologic history. On anticoagulation for A-fib. Concern for subacute CVA. #. Headache, subacute CVA rule out other causes like temporal arteritis -Brain CT showed ill-defined 0.9 cm right basal ganglia hypodensity may be a lacunar infarct of indeterminate age. -Last heart cath in 09/10/2021 showed LAD stenosis 30-40% and RCA stenosis 30-40% -High dose aspirin given in the ED. Continue with Aspirin 81mg p.o daily -Temporal pain not reproducible on physical exam -Patient has no other neurologic symptoms -Start prednisone 40mg p.o daily empirically if ESR is positive -CT angio brain with contrast if ESR Positive -ESR pending -Neurochecks -Consult neurology -Consult vascular surgery placed by ED Chronic Conditions: #. CAD #. Atrial fibrillation (not on anticoagulation) #. Anxiety -Resume home medications once reconciled F: Oral intake E: None N: Heart healthy diet A: Can self ambulate DVT ppx: Lovenox 40 mg SQ daily GI prophylaxis: Protonix 40 mg p.o. daily Dispo: The patient is admitted with an anticipated greater than 2 midnight stay for evaluation of headache CODE STATUS: Full Discussed with: Patient Anticipated discharge place: Home Angela Edward MD PGY-1 IM Dictation was produced using [employer] dictation software. please excuse any grammatical, word or spelling errors. I have seen and evaluated the patient today. I Discussed the case with the resident and agree with the resident's findings I edited the assessment and plan as necessary as documented in the resident's note.
[2024-10-04 07:40] LABS: Basophils % (A) 0 %; Eosinophils # (A) 0.2 k/uL (0-0.7); Eosinophils % (A) 4 %; HCT 41.6 % (34.0-46.0); HGB 13.6 gm/dL (11.4-16.0); Lymphocytes # (A) 2.1 k/uL (1.0-4.8); Lymphocytes % (A) 40 %; MCH 31.9 pg (25.0-35.0); MCHC 32.6 g/dL (31.0-37.0); MCV 97.9 fL (80.0-100.0); Mean Platelet Volume 7.6; Monocytes # (A) 0.4 k/uL (0-1.0); Monocytes % (A) 8 %; Neutrophils # (A) 2.4 k/uL (1.3-7.7); Neutrophils % (A) 45 %; Platelet Count 239 k/uL (150-450); RBC 4.25 m/uL (3.80-5.40); RDW 12.5 % (11.5-15.5); WBC 5.3 k/uL (3.8-10.6)
[2024-10-04 07:54] LABS: African American GFR (CKD) >90 (>60 ml/min/1.73 sqM); Anion Gap 6 mmol/L; Blood Urea Nitrogen 15 mg/dL (7-17); Calcium 9.2 mg/dL (8.4-10.2); Carbon Dioxide 29 mmol/L (22-30); Chloride 103 mmol/L (98-107); Glucose 86 mg/dL (74-99); Non-African American GFR(CKD) >90 (>60 ml/min/1.73 sqM); Potassium 4.4 mmol/L (3.5-5.1); Sodium 138 mmol/L (137-145)
[2024-10-04] MEDS: ENOXAPARIN 40 MG/0.4 ML SYRINGE SQ SCH (08:48)
[2024-10-04] MEDS: PANTOPRAZOLE 40 MG TABLET PO SCH (08:48)
[2024-10-04] MEDS: atenoloL 25 MG TAB PO SCH (08:48)
[2024-10-04] MEDS: ASPIRIN 81 MG PO SCH (08:48)
[2024-10-04] MEDS ORDERED: predniSONE 20 MG TAB PO SCH (09:00)
[2024-10-04 09:38] LABS: Erythrocyte Sedimentation Rate 11 mm/Hr (0-30)
--- NOTE | 2024-10-04 11:15 | P.GSCN ---
History of Present Illness Consult date: 10/04/24 Reason for Consult: Left temporal headache, possible temporal arteritis Requesting physician: Shanique Boland History of present illness: This is a pleasant 64-year-old female with a history of atrial fibrillation status post ablation on low-dose aspirin who had presented to the emergency department for complaints of acute onset left temporal headache. Patient states she had an episode on September 15 where she had the same headache mostly to the left cheekbone and temporal side of her head. She took some Tylenol and it eventually had subsided. States that it had returned and Tuesday again in the same location. States that she has a cough when she coughs it hurts more the cough has been ongoing with some congestion. She went to see her primary care physician yesterday and he was going to order an outpatient MRI however her headache continued so she came into the emergency department. She denied any other focal deficits, she had no visual changes no difficulty with speech and no weakness in her extremities. States that she has been having ongoing right upper extremity weakness weakness and achiness in her bicep and shoulder. She is seeing orthopedics regarding this. She did have a CT of the brain that did show an ill-defined 0.9 cm right basal ganglia hypodensity. Neurology was consulted for abnormal CT and headache and vascular surgery was consulted for possible temporal arteritis. Inflammatory markers including CRP and sed rate are both normal. No leukocytosis. Influenza RSV and COVID serologies nonreactive. Patient states headache is completely gone at this time. She states that it will return with some pain if she coughs or chapo over or is really active. Review of Systems A 14 point review systems was completed all pertinent positives and negatives as stated in the HPI. Past Medical History Past Medical History: Atrial Fibrillation Additional Past Medical History / Comment(s): perisistent cough lasting for years History of Any Multi-Drug Resistant Organisms: None Reported Past Surgical History: Ablation, Breast Surgery, Heart Catheterization Past Anesthesia/Blood Transfusion Reactions: No Reported Reaction Past Psychological History: Anxiety Smoking Status: Never smoker Past Alcohol Use History: Occasional Past Drug Use History: None Reported Medications and Allergies Home Medications Medication Instructions Recorded Confirmed Type atenoloL [Tenormin] 25 mg PO DAILY 09/04/21 10/04/24 History Rosuvastatin [Crestor] 20 mg PO HS 09/01/23 10/04/24 History Aspirin EC [Ecotrin Low Dose] 81 mg PO DAILY 10/04/24 10/04/24 History Allergies Allergy/AdvReac Type Severity Reaction Status Date / Time clarithromycin [From Biaxin] Allergy Vomiting Verified 10/04/24 07:49 Milk Containing Products Allergy Unknown Verified 10/04/24 07:49 (Dairy) [Dairy] Surgical - Exam Vital Signs Temp Pulse Resp BP Pulse Ox 97.9 F 91 18 151/95 97 10/03/24 19:28 10/03/24 19:28 10/03/24 19:28 10/03/24 19:28 10/03/24 19:28 General appearance: The patient is alert, oriented, appears in no acute distress. HET: Head is normocephalic and atraumatic. Nontender and no swelling along the left temporal scalp. Pupils are equal and reactive. Neck: Supple. No carotid bruit. Heart: Regular. Lungs: Equal expansion, normal respiratory effort. Abdomen: Soft, nontender, nondistended. Extremities: Normal skin color and turgor. Palpable radial pulses. Neurological: No focal deficits. Strength and sensation are grossly intact. Results - Labs 10/04/24 07:12 10/04/24 07:12 Abnormal Lab Results - Last 24 Hours (Table) 10/03/24 Range/Units 20:57 Glucose 112 H (74-99) mg/dL Diabetes panel 10/03/24 10/04/24 Range/Units 20:57 07:12 Sodium 140 138 (137-145) mmol/L Potassium 4.4 4.4 (3.5-5.1) mmol/L Chloride 103 103 (98-107) mmol/L Carbon Dioxide 28 29 (22-30) mmol/L BUN 17 15 (7-17) mg/dL Creatinine 0.86 0.69 (0.52-1.04) mg/dL Glucose 112 H 86 (74-99) mg/dL Calcium 9.6 9.2 (8.4-10.2) mg/dL AST 27 (14-36) U/L ALT 26 (4-34) U/L Alkaline Phosphatase 45 (38-126) U/L Total Protein 7.4 (6.3-8.2) g/dL Albumin 4.6 (3.5-5.0) g/dL Calcium panel 10/03/24 10/04/24 Range/Units 20:57 07:12 Calcium 9.6 9.2 (8.4-10.2) mg/dL Albumin 4.6 (3.5-5.0) g/dL Pituitary panel 10/03/24 10/04/24 Range/Units 20:57 07:12 Sodium 140 138 (137-145) mmol/L Potassium 4.4 4.4 (3.5-5.1) mmol/L Chloride 103 103 (98-107) mmol/L Carbon Dioxide 28 29 (22-30) mmol/L BUN 17 15 (7-17) mg/dL Creatinine 0.86 0.69 (0.52-1.04) mg/dL Glucose 112 H 86 (74-99) mg/dL Calcium 9.6 9.2 (8.4-10.2) mg/dL Adrenal panel 10/03/24 10/04/24 Range/Units 20:57 07:12 Sodium 140 138 (137-145) mmol/L Potassium 4.4 4.4 (3.5-5.1) mmol/L Chloride 103 103 (98-107) mmol/L Carbon Dioxide 28 29 (22-30) mmol/L BUN 17 15 (7-17) mg/dL Creatinine 0.86 0.69 (0.52-1.04) mg/dL Glucose 112 H 86 (74-99) mg/dL Calcium 9.6 9.2 (8.4-10.2) mg/dL Total Bilirubin 0.6 (0.2-1.3) mg/dL AST 27 (14-36) U/L ALT 26 (4-34) U/L Alkaline Phosphatase 45 (38-126) U/L Total Protein 7.4 (6.3-8.2) g/dL Albumin 4.6 (3.5-5.0) g/dL - Imaging Comments: Brain CT reports ill-defined 0.9 cm right basal ganglia hypodensity may be a lacunar infarct of indeterminate age. Acute infarct is within the differential. Correlate with symptoms. Follow-up with MRI. Assessment and Plan Assessment: 1. Acute headache/left temporal pain 2. Ill-defined 0.9 cm right basal ganglia hypodensity brain CT 3. And history of atrial fibrillation 4. Cough and congestion Plan: Headache resolved. Normal inflammatory markers. There is no indication for temporal artery biopsy, no plans for any vascular surgical intervention. Continue with further recommendations from neurology. Thank you for this consultation, we will sign off at this time. The impression and plan of care has been dictated as directed. Dr.Cuello Del Rosario performed a history and examination of this patient, discussed the same with the dictator. I agree with the dictator's note ,documented as a scribe. Any additional findings or plans will be noted.
--- NOTE | 2024-10-04 13:12 | CA ---
Transthoracic Echo Report Name: Chelsie Thomas Age: 64 Gender: F : 1960 Exam Date: 10/04/2024 11:08 Exam Location: [facility] Ht (in): 66 Wt (lb): 160 Ordering Physician: Harinder Chan Attending/Referring Phys: Elevator Builder Debby Whitfield RDCS Procedure CPT: Indications: CVA workup Cardiac Hx: Technical Quality: Good Contrast 1: Agitated Saline Total Dose (mL): 9 Contrast 2: Total Dose (mL): MEASUREMENTS (Male / Female) Normal Values 2D ECHO LV Diastolic Diameter PLAX 3.9 cm 4.2 - 5.9 / 3.9 - 5.3 cm LV Systolic Diameter PLAX 2.4 cm IVS Diastolic Thickness 0.9 cm 0.6 - 1.0 / 0.6 - 0.9 cm LVPW Diastolic Thickness 0.9 cm 0.6 - 1.0 / 0.6 - 0.9 cm LV Relative Wall Thickness 0.5 RV Internal Dim ED PLAX 2.9 cm LA Systolic Diameter LX 2.9 cm 3.0 - 4.0 / 2.7 - 3.8 cm LA Volume 55.5 cm??? 18 - 58 / 22 - 52 cm??? LA Volume Index 30.0 cm???/m??? 16 - 28 cm???/m??? M-MODE Aortic Root Diameter MM 3.3 cm AV Cusp Separation MM 2.1 cm DOPPLER AV Peak Velocity 101.6 cm/s AV Peak Gradient 4.1 mmHg MV Area PHT 3.0 cm??? Mitral E Point Velocity 58.3 cm/s Mitral A Point Velocity 69.7 cm/s Mitral E to A Ratio 0.8 MV Deceleration Time 251.8 ms TR Peak Velocity 223.1 cm/s TR Peak Gradient 19.9 mmHg Right Ventricular Systolic Press 24.5 mmHg FINDINGS Left Ventricle Left ventricular ejection fraction is estimated at 55-60 %. Left ventricular cavity size normal. Left ventricular wall thickness normal. No obvious regional wall motion abnormalities. Right Ventricle Normal right ventricular size. Right ventricular systolic pressure within normal limits. Right Atrium Normal right atrial size. No right atrial thrombus or mass seen. Negative agitated saline bubble study for right to left shunt. Left Atrium Mildly increased left atrial volume. No left atrial thrombus or mass present. Mitral Valve Structurally normal mitral valve. No mitral stenosis or prolapse. Trace to mild mitral regurgitation. Aortic Valve Trileaflet aortic valve. No aortic valve stenosis or regurgitation. Tricuspid Valve Structurally normal tricuspid valve. Mild tricuspid regurgitation. Pulmonic Valve Structurally normal pulmonic valve. Mild pulmonic regurgitation. Pericardium No pericardial effusion. Aorta Normal size aortic root and proximal ascending aorta. CONCLUSIONS Low normal LV systolic function with EF at 50% Negative contrast study/bubble study Previewed by: Dr. Ceasar Cook MD (Electronically Signed) Final Date: 04 October 2024 13:11
[2024-10-04] MEDS ORDERED: HYDROcodone/APAP 5-325MG 1 EACH TAB PO PRN (16:48)
--- NOTE | 2024-10-04 16:54 | P.PN ---
Subjective Progress Note Date: 10/04/24 Hospital course: Patient is a 64-year-old female with a past medical history of CAD, paroxysmal atrial fibrillation status post ablation no longer on anticoagulation, and hyperlipidemia. She presented to the hospital 10/03/2024 secondary to reports of left-sided temporal headache. Upon arrival to our facility patient underwent evaluation in the emergency department. Vital signs upon arrival show blood pressure 151/95, heart rate 91, respiratory rate 18, temp 97.9 F, and SpO2 of 97% on room air. CT brain completed showing an ill-defined 0.9 cm right basal ganglia hypodensity possibly secondary to a lacunar infarct versus acute infarct, recommending follow-up with MRI. Labs completed and reviewed. CBC unremarkable. BMP normal findings. Blood glucose 112. Calcium 9.6. Liver profile unremarkable. CRP was negative at less than 0.5. Influenza A, influenza B, RSV, and COVID PCR negative. Patient was given aspirin 325 mg p.o. x 1 dose and admitted under our services with consultation to neurology for evaluation. Vascular surgery was also consulted by ED physician to rule out temporal arteritis, CRP was negative and ESR is pending. Physical exam: Patient seen and fully evaluated at bedside. She remains in ER room 11 awaiting bed assignment on 3 S. She currently reports headache is slightly improved but again returns with movement. She denies having any dizziness, lightheadedness, changes in vision or hearing, tinnitus, dysphagia, difficulties with speech, or experiencing any numbness/tingling/weakness in her extremities. Patient denies having any chest pain, palpitations, or shortness of breath. Vital signs reviewed and stable. General: Nontoxic, no distress and appears stated age. Derm: Skin warm and dry, normal coloration for ethnicity. Head: Atraumatic, normocephalic and symmetric. Eyes: EOM's intact, no lid lag, and anicteric sclera Mouth: no lip lesions, mucus membranes moist Cardiovascular: regular rate and rhythm with normal S1S2, no murmur, positive posterior tibial pulses bilaterally, and cap refill < 2 seconds. Lungs: Respirations even, regular, and unlabored on room air. Lungs CTA bilaterally, no rhonchi, no rales, no wheezing, and no accessory muscle usage. Abdominal: soft, nontender to palpation, no guarding, no appreciable organomegaly Ext: ROM intact. No gross muscle atrophy, no edema, no contractures Neuro: Speech clear, face symmetrical and CN II-XII grossly intact with no noted focal neuro deficits Psych: Alert and oriented to person, place, time, and situation. Appropriate and pleasant affect. Assessment and Plan of Care: Intractable left temporal headache, rule out acute/subacute CVA vs other Abnormal CT findings -CT brain completed showing an ill-defined 0.9 cm right basal ganglia hypodensity possibly secondary to a lacunar infarct versus acute infarct, recommending follow-up with MRI. -Order placed for MRI brain with and without contrast, echocardiogram, EKG and carotid Doppler. -Neurology consulted, appreciate recommendations. -Vascular surgery was also consulted by ED physician to rule out temporal arteritis, CRP was negative and ESR is pending. -Neurochecks every 4 hours -Fall precautions in place -Continue aspirin 81 mg daily and atorvastatin 40 mg nightly. -Telemetry monitoring. 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 -Continue atenolol 25 mg daily and patient placed on DVT prophylaxis with Loven ox 40 mg daily. Hypertension -Monitor vital signs and continue daily medication regimen with atenolol 25 mg daily. Hyperlipidemia -Continue atorvastatin 40 mg nightly. GERD -Continue Protonix 40 mg daily. Data and imaging reviewed. Morning labs reviewed. CBC and BMP unremarkable. CT brain completed showing an ill-defined 0.9 cm right basal ganglia hypodensity possibly secondary to a lacunar infarct versus acute infarct, recommending follow-up with MRI. Vital signs reviewed. Blood pressure 123/95, heart rate 108, respiratory rate 16, temp 98% on room air. Temperature not updated in chart since arrival to ED. Order placed for EKG and reviewed at bedside showing normal sinus rhythm at 72 bpm with T wave inversion in lateral lead aVL otherwise no significant ST or further T wave abnormalities. CODE STATUS: Full code DVT prophylaxis: Lovenox Discussed with: Patient, patient's , and RN Anticipated discharge date: Pending clinical course Anticipated discharge place: Home Patient was seen independently by Nurse Pracitioner. This document was prepared using [employer] dictation software. Please allow for errors in buttonholer, while rare they do occur. Harinder Chan NP rendered care for this patient independently, reviewed the findings and plan as documented in the note above and agree with plan. I did not physically speak with or examine the patient on this date. Objective - Vital Signs Vital signs: Vital Signs Temp 97.9 F 10/03/24 19:28 Pulse 108 H 10/04/24 08:51 Resp 16 10/04/24 08:51 BP 123/95 10/04/24 08:51 Pulse Ox 98 10/04/24 08:51 FiO2 Intake & Output 10/03/24 10/04/24 10/04/24 18:59 06:59 18:59 Weight 72.575 kg - Labs CBC & Chem 7: 10/04/24 07:12 10/04/24 07:12 Labs: Abnormal Lab Results - Last 24 Hours (Table) 10/03/24 Range/Units 20:57 Glucose 112 H (74-99) mg/dL
[2024-10-04] MEDS: ACETAMINOPHEN TAB 325 MG TAB PO PRN (22:06)
[2024-10-04] MEDS: ATORVASTATIN 40 MG TAB PO SCH (22:06)
[2024-10-04] MEDS: LORazepam 2 MG/ML INJ IV PRN (22:07)
--- NOTE | 2024-10-04 22:57 | MR ---
EXAMINATION TYPE: MR brain wo/w con DATE OF EXAM: 10/04/2024 COMPARISON: CT brain from yesterday. MRI brain December 24, 2016 HISTORY: Left sided headaches TECHNIQUE: Multiplanar, multisequence images of the brain and brainstem is performed without and with IV contras t, utilizing 7.5ml mL intravenous Gadobutrol . FINDINGS: Diffusion weighted images demonstrate no evidence of a recent infarct or other diffusion ab normality. There is no extra-axial fluid collection. The ventricular system and cisternal spaces re main normal in size and appearance. The brain volume is age appropriate. There are some small scatte red foci of T2 hyperintensity seen throughout the white matter bilaterally. Approximately 15 lesions are seen increased in number from 2017 MRI. Lesions are nonspecific in appearance and distribution. Midline structures redemonstrate normal morphology. The craniocervical junction appears within ida l limits. Post contrast images demonstrate no abnormal enhancement. The dural venous sinuses appear patent. The visualized sinuses are clear and the globes are intact. Some patchy fluid signal right ma stoid air cells is redemonstrated. IMPRESSION: 1. No MRI evidence for recent infarct. 2. Mild nonspecific white matter changes favor product of chronic small vessel ischemic change in pat ient of this age. Other etiologies not excluded. No suspicious enhancement or enhancing masses are no sridevi. [facility], , 10/04/2024 10:55 PM
--- NOTE | 2024-10-04 23:52 | P.CNNES ---
History of Present Illness Consult date: 10/04/24 Requesting physician: Shanique Boland Reason for Consult: left temporal headache, abn ct head History of Present Illness: Patient is a 64-year-old female came to the hospital yesterday at 7:26 PM came to the hospital with headache. Patient states that she had a headache 1 day on 09/15/2024. It involves the left side from high cheek region to the left taoism. It was a continuous headache, rated 7-8/10 with no nausea, vomiting, light or noise sensitivity. Patient tried some balm for the muscle ache and the headache went away the next day. Patient was doing fine, until Tuesday night, (2 days ago) she had a similar pain in the left temporal. At that time she was doing nothing major, doing laundry and usual housework, walking around. She notices that the pain was occurring when she was bending over or coughing, or with any movement. She got concerned therefore came to the hospital. Patient does have some ALLERGIES, sinus issues, cough, watery eyes, Raynaud's and she coughs and gags. Patient denies any jaw claudication. Denies any trauma. Patient states that she went to dentist and of August and everything was fine. Patient does have a history of migraines in her 30s, but then went away in her 40s. Patient denies any weight loss, polymyalgia or fever or chills. Vital signs on arrival blood pressure 151/95, pulse 91 temperature 97.9. Blood test shows normal CBC, CMP, ESR 11, CRP less than 0.5. Influenza, RSV and coronavirus. Coronavirus PCR negative. CT head showed ill-defined 0.9 cm right basal ganglia hypodensity may be a lacunar infarct of indeterminate age. Acute infarct is within the differential. Correlate with symptoms. EKG showed sinus rhythm. 2D echo revealed low normal LV systolic function with EF 50%. Left ventricular cavity size is normal. No obvious regional wall motion abnormalities. Mildly increased left atrial volume. Negative contrast study/b ubble study. Review of Systems All pertinent positive and negative review of systems mentioned HPI. Past Medical History Past Medical History: Atrial Fibrillation Additional Past Medical History / Comment(s): perisistent cough lasting for years History of Any Multi-Drug Resistant Organisms: None Reported Past Surgical History: Ablation, Breast Surgery, Heart Catheterization Past Anesthesia/Blood Transfusion Reactions: No Reported Reaction Past Psychological History: Anxiety Smoking Status: Never smoker Past Alcohol Use History: Occasional Past Drug Use History: None Reported Medications and Allergies Home Medications Medication Instructions Recorded Confirmed Type atenoloL [Tenormin] 25 mg PO DAILY 09/04/21 10/04/24 History Rosuvastatin [Crestor] 20 mg PO HS 09/01/23 10/04/24 History Aspirin EC [Ecotrin Low Dose] 81 mg PO DAILY 10/04/24 10/04/24 History Allergies Allergy/AdvReac Type Severity Reaction Status Date / Time clarithromycin [From Biaxin] Allergy Vomiting Verified 10/04/24 07:49 Milk Containing Products Allergy Unknown Verified 10/04/24 07:49 (Dairy) [Dairy] Physical Examination - Vital Signs Vital Signs: Vital Signs Temp Pulse Resp BP Pulse Ox 10/04/24 12:10 74 18 135/94 94 L 10/04/24 08:51 108 H 16 123/95 98 10/04/24 04:08 65 18 129/85 99 10/03/24 22:58 95 17 115/93 95 10/03/24 19:28 97.9 F 91 18 151/95 97 Patient is an elderly female, very pleasant, in no acute distress. Patient is alert awake oriented to time place and person. Speech and language functions are normal. Patient can name and repeat very well. No aphasia or dysarthria. Attention, concentration and fund of knowledge is adequate. On cranial nerve examination, pupils are equal, round and reacting to light, visual willis are full on confrontation, with no neglect on double simultaneous stimulation. Extraocular muscles are intact with no nystagmus. Face is symmetric, tongue protrudes to the midline. Palatal elevation and sensation normal, hearing and shoulder shrug normal, facial sensation normal. On muscle strength testing, there is no pronator drift and the strength is normal in arms and legs distally and proximally. Deep tendon reflexes are symmetric 2 all over and plantars downgoing. Sensory to touch is equal with no neglect on double simultaneous stimulation. Cerebellar function showed no ataxia for [id number] testing. No dysdiadochokinesia. No ataxia for [id number] testing on either side. Tone and bulk of muscles normal. Gait deferred.. On general examination, there is no carotid bruit or murmur, S1-S2 audible. Chest is clear on consultation. Abdomen is soft nontender. No organomegaly, bowel sounds present. Peripheral pulses are present. No peripheral edema. Results - Laboratory Findings CBC and BMP: 10/04/24 07:12 10/04/24 07:12 Abnormal Lab Findings: Abnormal Labs 10/03/24 20:57 Glucose 112 H Assessment and Plan Assessment: * Atypical facial pain, involving the left upper cheek extending to the left taoism. Possibly related to some sinus issues/ALLERGIES. * Hyperlipidemia * Hypertension Plan: * Patient's ESR normal 11, CRP < 0.5. No clinical evidence of temporal arteritis. * CT head was reviewed. The vague hypodensity there 0.9 cm mentioned in the left basal ganglia is probably artifactual. Patient has no clinical symptoms whatsoever. * Patient has been scheduled for an MRI by primary team. If negative, then we will be clear for discharge. * Suggest trying Motrin 400 mg every 8 hours when necessary myofascial/atypical facial pain. * If symptoms persists, recommend follow-up with neurologist outpatient. * Thank you for the consult. Addendum: MRI of the brain revealed no evidence for recent infarct. Mild nonspecific white matter changes favored product of chronic small vessel ischemic change in patient of this age. No suspicious enhancement or enhancing masses noted. I personally reviewed MRI agree with the findings. Continue aspirin 81 mg and Crestor 20 mg. Neurologically clear for discharge.
[2024-10-05 07:54] VITALS: BP 126/84; PULSE 88; RESP 16; TEMP 98.1
--- NOTE | 2024-10-05 18:56 | P.DS ---
Providers Date of admission: 10/03/24 23:26 Expected date of discharge: 10/05/24 Attending physician: Srinivasa Masters MD Consults: 10/03/24 23:07 Consult Physician Urgent Consulting Provider: Odette Juarez Consult Reason/Comments: left temporal headache, abn ct head Do you want consulting provider notified?: Yes Primary care physician: Hyacinth [facility] Course: Discharge Diagnosis: Intractable left temporal headache, acute/subacute CVA ruled out. Abnormal CT findings, MRI with and without contrast was completed negative for acute process showing mild nonspecific white matter changes favor product of chronic small vessel ischemic changes normal for patient of this age no suspicious enhancement or enhancing masses noted. Paroxysmal atrial fibrillation. 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 Continue atenolol 25 mg daily and patient placed on DVT prophylaxis with Lovenox 40 mg daily. Hypertension. Monitor vital signs and continue daily medication regimen with atenolol 25 mg daily. Hyperlipidemia. Continue atorvastatin 40 mg nightly. GERD. Continue Protonix 40 mg daily. Hospital Course: Patient is a 64-year-old female with a past medical history of CAD, paroxysmal atrial fibrillation status post ablation no longer on anticoagulation, and hyperlipidemia. She presented to the hospital 10/03/2024 secondary to reports of left-sided temporal headache. Upon arrival to our facility patient underwent evaluation in the emergency department. Vital signs upon arrival show blood pr essure 151/95, heart rate 91, respiratory rate 18, temp 97.9 F, and SpO2 of 97% on room air. CT brain completed showing an ill-defined 0.9 cm right basal ganglia hypodensity possibly secondary to a lacunar infarct versus acute infarct, recommending follow-up with MRI. Labs completed and reviewed. CBC unremarkable. BMP normal findings. Blood glucose 112. Calcium 9.6. Liver profile unremarkable. CRP was negative at less than 0.5. Influenza A, influenza B, RSV, and COVID PCR negative. Patient was given aspirin 325 mg p.o. x 1 dose and admitted under our services with consultation to neurology for evaluation. Vascular surgery was also consulted by ED physician to rule out temporal arteritis, CRP was negative and ESR is negative at 11. Echocardiogram was completed showing a normal preserved EF of 50% negative contrast bubble study. Patient was evaluated by neurology. Acute/subacute CVA has been ruled out. Headache likely secondary to sinus pressure possible cluster headache.MRI with and without contrast was completed negative for acute process showing mild nonspecific white matter changes favor product of chronic small vessel ischemic changes normal for patient of this age no suspicious enhancement or enhancing masses noted. . Patient cleared from neurological perspective for discharge and is medically optimized for discharge home at this time. Physical exam: Vital signs reviewed and stable. General: Nontoxic, no distress and appears stated age. Derm: Skin warm and dry, normal coloration for ethnicity. Head: Atraumatic, normocephalic and symmetric. Eyes: EOM's intact, no lid lag, and anicteric sclera Mouth: no lip lesions, mucus membranes moist Cardiovascular: regular rate and rhythm with normal S1S2, no murmur, positive posterior tibial pulses bilaterally, and cap refill < 2 seconds. Lungs: Respirations even, regular, and unlabored on room air. Lungs CTA bilaterally, no rhonchi, no rales, no wheezing, and no accessory muscle usage. Abdominal: soft, nontender to palpation, no guarding, no appreciable organomegaly Ext: ROM intact. No gross muscle atrophy, no edema, no contractures Neuro: Speech clear, face symmetrical and CN II-XII grossly intact with no noted focal neuro deficits Psych: Alert and oriented to person, place, time, and situation. Appropriate and pleasant affect. A total of 31 minutes of time were spent preparing this complex discharge summary. Pt was discharged on 10/05/2024 at 9:58 AM. Patient was seen independently by Nurse Practitioner. This document was prepared using [employer] dictation software. Please allow for errors in housing specialist while rare they do occur. Harinder Chan NP rendered care for this patient independently, reviewed the findings and plan as documented in the note above. I did not physically speak with or examine the patient on this date. Patient Condition at Discharge: Stable Plan - Discharge Summary Discharge Rx Participant: No New Discharge Prescriptions: Continue Aspirin EC [Ecotrin Low Dose] 81 mg PO DAILY atenoloL [Tenormin] 25 mg PO DAILY Rosuvastatin [Crestor] 20 mg PO HS Discharge Medication List atenoloL [Tenormin] 25 mg PO DAILY 09/04/21 [History] Rosuvastatin [Crestor] 20 mg PO HS 09/01/23 [History] Aspirin EC [Ecotrin Low Dose] 81 mg PO DAILY 10/04/24 [History] Follow up Appointment(s)/Referral(s): Hyacinth Landin MD [Primary Care Provider] - 1-2 days Patient Instructions/Handouts: Acute Headache (DC) Activity/Diet/Wound Care/Special Instructions: Activity: As tolerated. Take breaks as needed. Diet: Heart healthy and carb consistent diet. Avoid salts, or foods with hidden salts such as canned or boxed foods and frozen dinners. Extra salt makes your heart work harder and traps the fluid in your body for longer. Special Instructions: Take all of your medications as directed and remember to keep all of your doctor's appointments and follow-up as needed. Thank you for allowing us to participate in your care, it was truly a pleasure having you for our patient!!! . Discharge Disposition: HOME SELF-CARE
== END 2024-10-05 11:40 | disposition home or self-care (01) ==
LOC: EC 19:26 → 3SCARD 23:26
PROVIDERS: ADMIT Internal Medicine; ATTEND Internal Medicine
DX: G50.1 Atypical facial pain (principal); R93.0 Abnormal findings on diagnostic imaging of skull and head, not elsewhere classified; I48.0 Paroxysmal atrial fibrillation; E78.5 Hyperlipidemia, unspecified; F41.9 Anxiety disorder, unspecified; I10 Essential (primary) hypertension; I25.10 Atherosclerotic heart disease of native coronary artery without angina pectoris; I73.00 Raynaud's syndrome without gangrene; K21.9 Gastro-esophageal reflux disease without esophagitis; Z79.01 Long term (current) use of anticoagulants; Z79.82 Long term (current) use of aspirin; Z88.1 Allergy status to other antibiotic agents; Z79.899 Other long term (current) drug therapy
CPT/HCPCS: 96372 ×2; 96374; 99285; 36415; 93005; 93306; 80053; 80048; 85652; 85025 ×2; 86140; 87636; 70450; 70553; G0378 ×3; J2060; J1650 ×2; A9585